=== PATIENT | male | born 1940 | race Caucasian/White ===

== ENCOUNTER 2020-06-24 14:44 | Emergency (ER) | payer OTHER ==
--- OUTSIDE RECORDS SUMMARY | 2020-06-24 14:46 | XMS REPORT | Continuity of Care Document ---
:1940 Author Organization [facility] t Address [address] [place] [address] Care Team Providers Name Role Phone Lab, [facility] Fam Pob I Attending Clinician Unavailable Doctor Unassigned, Name Attending Clinician Unavailable Problems This patient has no known problems. Allergies, Adverse Reactions, Alerts This patient has no known allergies or adverse reactions. Medications This patient has no known medications. Procedures This patient has no known procedures. Encounters Start End Encounter Admission Attending Care Care Encounter Source Date/Time Date/Time Type Type Clinicians Facility Department ID 2020-04-29 2020-04-29 Telephone Lab, [facility] CHARLES [id number] 00:00:00 00:00:00 Fam Pob I CRI[place] [id number] [place] [id number] 2020-04-28 2020-04-28 Laboratory Lab, [facility] [id number] 09:53:06 10:13:06 Only Fam Pob I Health [id number] [place] [id number] [place] [id number] [address] 2020-04-28 2020-04-28 Letter Doctor CHARLES [id number] 00:00:00 00:00:00 (Out) Unassigned, CRISTINO [id number] [place] [id number] [id number] Results This patient has no known results.
--- NOTE | 2020-06-24 18:56 | EDPHYS ---
Physician Documentation [facility] Name: Vladimir Yates Age: 79 yrs Sex: Male : 1940 Arrival Date: 06/24/2020 Time: 14:45 Bed 6 Private MD: ED Physician Rai Gutierrez HPI: 06/24 18:00 This 79 yrs old Male presents to ER via Wheelchair with complaints of Needs cp Cathater- sent by Dr Chun. 18:00 The patient presents with urinary symptoms, retention. cp 18:00 Associated signs and symptoms: Pertinent negatives: abdominal pain, dysuria, fever. cp 18:00 Patient referred to ED by DR Chun for placement of nicole catheter. cp Historical: - Allergies: 15:23 Bactrim; ca1 - PMHx: 15:23 Bladder Ca; ca1 - Immunization history:: Pneumococcal vaccine is up to date, Flu vaccine is up to date. - Social history:: Smoking status: Patient denies any tobacco usage or history of. ROS: 18:05 : Positive for difficulty urinating, Negative for flank pain, testicular pain cp 18:05 Constitutional: Negative for body aches, chills, fever. cp 18:05 Abdomen/GI: Negative for abdominal pain, nausea, vomiting, and diarrhea. 18:05 All other systems are negative. Exam: 18:10 Constitutional: The patient appears in no acute distress, alert, awake, non-toxic, well cp developed, well nourished. 18:10 Head/Face: Normocephalic, atraumatic. cp 18:10 Chest/axilla: Inspection: normal. 18:10 Cardiovascular: Rate: normal. 18:10 Respiratory: the patient does not display signs of respiratory distress, Respirations: normal, no use of accessory muscles, no retractions. 18:10 Abdomen/GI: Inspection: abdomen appears normal, Bowel sounds: active, all quadrants, Palpation: abdomen is soft and non-tender, in all quadrants. Vital Signs: 15:19 BP 124 / 55; Pulse 62; Resp 18 S; Temp 97.4(TE); Pulse Ox 98% on R/A; Weight 72.57 kg ca1 (R); Height 5 ft. 11 in. (180.34 cm) (R); 18:34 BP 150 / 91; Pulse 68; Resp 17 S; Pulse Ox 99% on R/A; jd3 19:50 BP 145 / 85; Pulse 69; Resp 16; Pulse Ox 98% ; rr5 15:19 Body Mass Index 22.32 (72.57 kg, 180.34 cm) ca1 MDM: 17:56 Patient medically screened. [facility] 18:00 Differential diagnosis: UTI, urinary retention, prostatitis. 18:55 Data reviewed: vital signs, nurses notes, lab test result(s). 18:55 Counseling: I had a detailed discussion with the patient and/or guardian regarding: the historical points, exam findings, and any diagnostic results supporting the discharge/admit diagnosis, to return to the emergency department if symptoms worsen or persist or if there are any questions or concerns that arise at home. Response to treatment: the patient's symptoms have markedly improved after treatment. ED course: VSS. Nicole catheter placed by nursing staff. Will discharge to home for continued monitoring. 06/24 18:00 Order name: Urine Culture 06/24 18:29 Order name: Urine Dipstick--Ancillary (enter results) 06/24 17:53 Order name: Bladder Scanner: pre and post void; Complete Time: 18:27 06/24 18:00 Order name: Nicole; Complete Time: 18:52 06/24 18:00 Order name: Urine Dipstick-Ancillary (obtain specimen); Complete Time: 18:27 06/24 19:46 Order name: Urine Dipstick-Ancillary [facility] Administered Medications: No medications were administered Disposition: 19:00 Chart complete. 06/25 07:51 Co-signature as Attending Physician, Rai Gutierrez MD I agree with the assessment and [facility] plan of care. Disposition: 06/24/20 18:55 Discharged to Home. Impression: Retention of urine. - Condition is Stable. - Discharge Instructions: Nicole Catheter Care, Adult, Acute Urinary Retention, Male. - Prescriptions for Keflex 500 mg Oral Capsule - take 1 capsule by ORAL route every 8 hours for 10 days; 30 capsule. - Medication Reconciliation Form, Thank You Letter, Antibiotic Education, Prescription Opioid Use form. - Follow up: Private Physician; When: 1 - 2 days; Reason: Recheck today's complaints. - Problem is new. - Symptoms have improved. Signatures: Dispatcher [employer] EDMS Rai Gutierrez MD MD cha Page, Corey, PA PA cp Luis Felipe Fam, RN RN rr5 Lien Ram RN RN ca1 Corrections: (The following items were deleted from the chart) 06/24 19:54 18:55 06/24/2020 18:55 Discharged to Home. Impression: Retention of urine. Condition is rr5 Stable. Forms are Medication Reconciliation Form, Thank You Letter, Antibiotic Education, Prescription Opioid Use. Follow up: Private Physician; When: 1 - 2 days; Reason: Recheck today's complaints. Problem is new. Symptoms have improved. cp
--- NOTE | 2020-06-24 18:56 | ER ---
Nurse's Notes [facility] Name: Vladimir Yates Age: 79 yrs Sex: Male : 1940 Arrival Date: 06/24/2020 Time: 14:45 Bed 6 Private MD: Diagnosis: Retention of urine Presentation: 06/24 15:19 Chief complaint: Parent and/or Guardian states: I am his medical power of scheduling administrator: We ca1 were sent here to put a urinary catheter on him then go back to Dr. Chun at the cancer center. Coronavirus screen: Client denies travel out of the [place] in the last 14 days. At this time, the client does not indicate any symptoms associated with coronavirus-19. Ebola Screen: Patient negative for fever greater than or equal to 101.5 degrees Fahrenheit, and additional compatible Ebola Virus Disease symptoms Patient denies exposure to infectious person. Patient denies travel to an Ebola-affected area in the 21 days before illness onset. No symptoms or risks identified at this time. Initial Sepsis Screen: Does the patient meet any 2 criteria? No. Patient's initial sepsis screen is negative. Does the patient have a suspected source of infection? No. Patient's initial sepsis screen is negative. Risk Assessment: Do you want to hurt yourself or someone else? Patient reports no desire to harm self or others. Onset of symptoms was June 24, 2020. 15:19 Method Of Arrival: Wheelchair ca1 15:19 Acuity: JODIE 5 ca1 Historical: - Allergies: 15:23 Bactrim; ca1 - PMHx: 15:23 Bladder Ca; ca1 - Immunization history:: Pneumococcal vaccine is up to date, Flu vaccine is up to date. - Social history:: Smoking status: Patient denies any tobacco usage or history of. Screenin:33 Abuse screen: Denies threats or abuse. Nutritional screening: No deficits noted. jd3 Tuberculosis screening: No symptoms or risk factors identified. Fall Risk Ambulatory Aid- None/Bed Rest/Nurse Assist (0 pts). Gait- Normal/Bed Rest/Wheelchair (0 pts) Mental Status- Oriented to own ability (0 pts). Total Lr Fall Scale indicates No Risk (0-24 pts). Assessment: 18:29 General: Appears in no apparent distress. comfortable, Behavior is calm, cooperative, jd3 appropriate for age. Pain: Denies pain. Neuro: Level of Consciousness is awake, alert, obeys commands, Oriented to person, place, time, situation. Cardiovascular: Denies chest pain, Capillary refill < 3 seconds Patient's skin is warm and dry. Respiratory: Airway is patent Respiratory effort is even, unlabored, Respiratory pattern is regular, symmetrical, Denies cough, shortness of breath. GI: No signs and/or symptoms were reported involving the gastrointestinal system. : Reports inability to void, Denies burning with urination. EENT: No signs and/or symptoms were reported regarding the EENT system. Derm: Skin is intact, Skin is dry, Skin is normal, Skin temperature is warm. Musculoskeletal: No signs and/or symptoms reported regarding the musculoskeletal system. Vital Signs: 15:19 BP 124 / 55; Pulse 62; Resp 18 S; Temp 97.4(TE); Pulse Ox 98% on R/A; Weight 72.57 kg ca1 (R); Height 5 ft. 11 in. (180.34 cm) (R); 18:34 BP 150 / 91; Pulse 68; Resp 17 S; Pulse Ox 99% on R/A; jd3 19:50 BP 145 / 85; Pulse 69; Resp 16; Pulse Ox 98% ; rr5 15:19 Body Mass Index 22.32 (72.57 kg, 180.34 cm) ca1 ED Course: 14:45 Patient arrived in ED. ds1 15:22 Triage completed. ca1 15:23 Arm band placed on right wrist. ca1 17:52 Rai Lezama PA is PHCP. cp 17:52 Rai Gutierrez MD is Attending Physician. cp 18:12 Bladder scan completed. PRE VOID BLADDER SCAN 195ML. kj1 18:17 Levi Farah, RN is Primary Nurse. jd3 18:25 Bladder scan completed. BLADDER SCAN POST VOID 170ML. kj1 18:28 Urine Culture Sent. kj1 18:33 Patient has correct armband on for positive identification. Bed in low position. Call jd3 light in reach. Side rails up X2. Pulse ox on. NIBP on. 18:48 Jose cath inserted, using sterile technique, 16 Fr., by advertising traffic manager, balloon inflated, to jd3 gravity drainage, returned clear yellow urine. Patient tolerated well. 19:53 No provider procedures requiring assistance completed. Patient did not have IV access rr5 during this emergency room visit. Administered Medications: No medications were administered Outcome: 18:55 Discharge ordered by . cp 19:53 Discharged to home via wheelchair, with family. rr5 19:53 Condition: stable 19:53 Discharge instructions given to patient, Instructed on discharge instructions, follow up and referral plans. medication usage, Demonstrated understanding of instructions, follow-up care, medications, Prescriptions given X 1. 19:54 Patient left the ED. rr5 Signatures: Kavya De Santiago ds1 Rai Lezama PA PA Levi Hernandez RN RN jd3 Luis Felipe Fam RN RN rr5 Lien Ram RN RN ca1 Marysol Mayes kj1
[2020-06-24 19:46] LABS: Urine Blood 3+ (NEG); Urine Glucose NEGATIVE (NEG); Urine Protein NEGATIVE (NEG)
[2020-06-24 20:00] VITALS: TEMP 97.4
[2020-06-24 20:02] VITALS: BP 145/85; O2SAT 98
== END 2020-06-24 19:54 | disposition home or self-care (01) ==
LOC: ER 14:44
PROC: 0T9B70Z Drainage of Bladder with Drainage Device, Via Natural or Artificial Opening (ICD-10-PCS; principal; 2020-06-24)
DX: R33.9 Retention of urine, unspecified (principal); C67.9 Malignant neoplasm of bladder, unspecified; Z88.1 Allergy status to other antibiotic agents
CPT/HCPCS: 51702; 81003; 87086; 87088; 99284